=== PATIENT | female | born 1970 | race Caucasian/White ===

== ENCOUNTER 2022-11-12 08:12 | Outpatient (CLI) | payer OTHER, SELFPAY ==
--- NOTE | 2022-11-12 08:22 | ECG_ITS ---
Measurements Intervals [employer] Rate: 74 P: 40 GA: 171 QRS: 32 QRSD: 84 T: 37 QT: 392 QTc: 435 Interpretive Statements SINUS RHYTHM SEPTAL MYOCARDIAL INFARCTION , PROBABLY OLD [40+ ms Q WAVE IN V1/V2] NONSPECIFIC ST ABNORMALITY ABNORMAL ECG NO PREVIOUS ECG AVAILABLE FOR COMPARISON Electronically Signed On 11-12-2022 9:18:05 CDT by Meir Sutton M.D.
[2022-11-12 14:00] LABS: Anion Gap 7 mmol/L (8-16); Blood Urea Nitrogen 16 mg/dL (7-17); Carbon Dioxide 29 mmol/L (22-30); Chloride 104 mmol/L (98-107); Estimated Glomerular Filt Rate > 60; Glucose 97 mg/dL (65-110); Potassium 4.2 mmol/L (3.4-5.0); Sodium 140 mmol/L (137-145)
== END 2022-11-12 08:13 | disposition home or self-care (01) ==
LOC: ANHLAB 08:15
PROVIDERS: Visit Provider Anesthesiology
DX: I10 Essential (primary) hypertension (principal); E78.00 Pure hypercholesterolemia, unspecified; Z01.818 Encounter for other preprocedural examination; R94.31 Abnormal electrocardiogram [ECG] [EKG]
CPT/HCPCS: 36415; 80048; 93005

== ENCOUNTER 2022-11-15 00:49 | Day surgery (SDC) | payer OTHER, SELFPAY ==
[2022-11-10 11:56] VITALS: BMI 31.1
--- NOTE | 2022-11-10 12:03 | PC.NURSE ---
Report to the Outpatient Waiting Room, entrance under the green pavilion located off [facility], at time _0600_ on date _11/15/22_. Planned Procedure Time: _0730. Time changes happen often and if your time is changed the preop area will call you the afternoon before. - You and your visitor will be asked to self-screen and do not enter if you have any COVID symptoms. - A mask is optional within the hospital at this time. Patients may have clear liquids (water, carbonated beverages, clear teas, apple juice) until 3 hours prior to surgery with a maximum of 20 ounces. - No food from midnight until time of surgery - Infants may have breast milk until 4 hours before surgery, formula 6 hours prior to surgery. - Children will be allowed to drink immediately following surgery. If applicable, please bring a bottle or sippy cup to assist with drinking. Juice, water, soda, and popsicles are readily available. For infants on formula, please bring formula the day of surgery. Pacifiers are allowed. Take the following medications with a SIP of water the morning of surgery: NONE__ DO NOT STOP ANY OF YOUR OTHER PRESCRIPTION MEDICATIONS PRIOR TO SURGERY ?EXCEPT THE FOLLOWING Medications to discontinue per physician NONE Date to take last dose Please no make-up, nail lithuanian, hairspray, perfume, deodorant, or body powder the day of surgery. No jewelry (including any body piercings) or valuables the day of surgery, leave them at home. Please take a shower or bath the night before, or the morning of, surgery with an antibacterial soap. Wear comfortable, loose fitting clothing. Children are encouraged to wear pajamas. - Jewelry must be removed prior to entering the operating room. Rings and piercings that are not removed may be cut off. - The hospital will not accept responsibility for valuables. - Please leave all valuables, including medications, at home the day of surgery. If you are going home after surgery, a licensed tram driver must drive you home. - NO public transportation without another adult if you receive anesthesia. - We recommend that an adult stay with you for 24 hours following discharge. - We also recommend that you do not drive, make important decision, drink alcoholic beverages, or take any drugs that were not prescribed by your health care provider for at least 24 hours after your discharge time. For Pediatric surgeries, we recommend two adults accompany the child home. Follow any additional instructions given to you from your surgeon. If you or anyone in your household have experienced Covid symptoms in the past week, please notify your surgeon or the nurse liaison at the phone number below for possible testing. Telephone instructions given to __PATIENT_and asked if any additional questions and then verbalized understanding. Patient advised to call surgeon office or pre surgery nurse liaison [phone] if any additional questions.
[2022-11-15] VITALS (13 sets, daily range): BP systolic 102–155; BP diastolic 58–98; PULSE 69–101; RESP 14–20; TEMP 35.9–37.1; O2SAT 92–100
[2022-11-15 06:50] LABS: Urine Cotinine NEGATIVE
--- NOTE | 2022-11-15 07:07 | WPDHPUPDATE1 ---
History and Physical Update Update Date/Time: 11/15/22 07:07 History and Physical has been reviewed, including an updated exam of the patient. There are NO changes in the patient's condition. Risks, benefits, and alternatives have been discussed and questions answered. Patient agrees to proceed with procedure.
--- NOTE | 2022-11-15 07:07 | W.PM.PROC2 ---
Procedure Note - Detailed Date of Procedure 11/15/22 Pre-op Diagnosis skin laxity Post-op Diagnosis Same Procedure Performed Progressive tension abdominoplasty with suction lipectomy Surgeon Govind Barnes MD Anesthesia General Findings Tissue removed: 2,909 grams Lipoaspirate: 3,100 cc Description of Procedure They are here today for abdominoplasty. Previously and again today the risks, benefits, alternatives were discussed in extensive detail. I wanted them to be very realistic about the risks involved as well as expectations. We discussed aftercare and what to monitor for. I was very upfront about the risks of wound breakdown leading to loss of skin, open wounds, and need for additional procedures with permanent abdominal deformity. We discussed DVT/PE risks and management. Made sure answered all of their questions to their satisfaction today and consent was obtained. They were marked in the preoperative holding area with their verification. The patient was taken to the operating room placed supine on the operating table. Anesthesia was provided by anesthesiology. A Quintana catheter was started. They were prepped and draped in a standard sterile fashion. A surgical time-out was taken. I placed the patient in a flexed position to verify the upper and lower markings would reach. I then placed supine. A thorough abdominal examination was completed. Stab incisions were made and tumescent solution infiltrated. Once adequate time was allowed for hemostasis a 5mm basket cannula and 3mm cannula were utilized to complete suction lipectomy based on S.A.F.E. technique in multiple planes and passes. There were turned to bilateral lateral decubitus position with care taken to protect them for injury during this process. Suction lipectomy continued to result based on pre-operative planning, intra-operative observation, and rolling pinch test which were in full agreement. A 10 blade was used to make the upper incision. I continued dissection down to the level of fascia. Elevated just what was necessary for repair of the diastasis. I then again flexed the bed to verify the upper skin flap would reach the lower markings without tension. Once verified I placed her supine once again and a 10 blade used to make the lower incision. I elevated up to level the umbilicus and left the umbilicus intact on a well-vascularized stalk. The intervening tissue was removed. A 2 mm blunt cannula with 0.5% bupivicaine was injected deep to the fascia bilaterally. I plicated the diastasis recti using 0 PDO stratafix barbed suture. This was in 2 separate layers using 2 separate sutures as well. I repaired around the umbilicus leaving plenty of room for well-vascularized stalk of the umbilicus with 2-0 PDS. I also repaired lateral to the rectus using two layers of 0 PDO stratafix. The patient was flexed and starting from superior to inferior began plication using 2-0 Vicryl to obliterate all space in a standard progressive tension fashion. At the umbilicus I marked out the location of the skin and inset this with 3-0 Monocryl and 4-0 Vicryl. I continued the remainder of the plication using 2-0 Vicryl until I reached my lower planned scar line. I trimmed any excess skin of the upper flap making sure this was a tension-free closure. Single 15 joan drain was placed. I then approximated using a 3 point suture with 2-0 Vicryl followed by 3-0 stratafix ,running subcuticular 4-0 Monocryl, and tissue glue. Fluffs and an abdominal binder were placed. The patient was transferred to the bed in a flexed position. Awoken and taken to the PACU without difficulty. All instrument and sponge counts were correct at the end of the case. Estimated Blood Loss 75 Drains No Packing No Pathology None sent Complications No immediate complications Condition Stable Disposition PACU
--- NOTE | 2022-11-15 07:08 | P.PNAN_ITS ---
Anes - Initial Pre Proc Eval Procedure: Operation Date: 11/15/22 07:30 Proposed Procedures p Abdominoplasty with Liposuction - Govind Barnes MD Date/Time: 11/15/22 07:08 Surgeon: Govind Barnes MD Pre Op Diagnosis: skin laxity Patient Data Age: 51 Gender: F Height: 1.73 m Weight: 89.5 kg Last Vital Signs Temp 35.9 C L 11/15/22 06:45 Pulse 69 11/15/22 06:45 Resp 18 11/15/22 06:45 BP 141/66 H 11/15/22 06:45 Pulse Ox 98 11/15/22 06:45 O2 Del Method Room Air 11/15/22 06:45 Allergies Allergy/AdvReac Type Severity Reaction Status Date / Time Sulfa (Sulfonamide AdvReac Unknown N/V Verified 11/15/22 06:40 Antibiotics) Home Medications Medication Instructions Recorded Confirmed Type hydrochlorothiazide 25 mg PO DAILY 12/16/21 11/15/22 History rosuvastatin 10 mg tablet (Crestor) 10 mg PO DAILY 11/10/22 11/15/22 History Laboratory Tests 11/15/22 06:31 Cotinine Negative Patient hx anesthesia problems: none Family hx anesthesia problems: none Results Review: All pre-operative results and documents have been reviewed as part of the pre- operative evaluation. [facility] Surgical History Surgical History History of appendectomy History of History of hysterectomy Family History Family History Mother Ovarian cancer Social History Social History Smoking status: Never smoker Alcohol intake: former Alcohol use details: ONE DRINK PER YEAR Living arrangements: alone Anes - Eval Final PreProcedure Day of Procedure 11/15/22 07:08 Patient weight: obese Heart: regular rate and rhythm Lungs: clear to auscultation Airway: Mallampati scale class II Neurological: alert and oriented Last oral intake: >/= 8 hours ASA classification: II Emergent: no Anesthetic plan: proceed Anesthesia type and monitoring: general ETT and standard monitoring Results Review: All pre-operative results and documents have been reviewed as part of the pre- operative evaluation. Informed Consent: The patient's anesthetic plan and its attendant risks and benefits were discussed with the patient/family/POA. Questions were solicited and answers provided to the satisfaction of the patient/family/POA.
[2022-11-15] MEDS: LACTATED RINGERS 1,000 ML 30 ML IV CONT ×3 (07:11→12:32)
[2022-11-15] MEDS: SCOPOLAMINE 1.5 MG PATCH TRANSDERM (07:19)
[2022-11-15] MEDS: LACTATED RINGERS IRRIG 1,000 ML, LIDOCAINE HCL 1% LOCAL INJ 50 ML, EPINEPHrine HCL INJ ... INFILTRATE (07:27)
[2022-11-15] MEDS: BUPIVACAINE/EPINEPHRINE 0.5% 10 ML VIAL 60 ML INFILTRATE (07:27)
[2022-11-15] MEDS: ceFAZolin 2 GM/D5W 50 ML 2 GM/50 ML BAG IVPB (07:27)
[2022-11-15] MEDS: TRANEXAMIC ACID 1,000MG/ISO100 1,000 MG/100 ML BAG 200 MG IVPB (07:37)
[2022-11-15] MEDS: fentaNYL CITRATE INJ (*CRX) 100 MCG/2 ML VIAL 25 MCG IV PUSH ×7 (12:39→14:30)
[2022-11-15] MEDS: ONDANSETRON INJ 4 MG/2 ML VIAL IV PUSH (12:57)
[2022-11-15] MEDS: diphenhydrAMINE HCl INJ 50 MG/ML VIAL 25 MG IV PUSH (13:02)
--- NOTE | 2022-11-15 14:38 | ADMGEN ---
This patient, Latasha Reynolds, was admitted to OB 2nd Floor Room 289-00. Patient/family oriented to hospital policies and general routines including ID bracelet, bed and alarms, visiting hours, pain management, procedures, bathroom and other care routines, personal items, smoking policy, room service/diet, and visiting hours. Information on how to activate the Rapid Response Team has been discussed. Patient/Family are encouraged to report perceived risks to care and to ask questions if they do not understand what they are told or what they should do.
[2022-11-15] MEDS: LACTATED RINGERS 1,000 ML 125 ML IV CONT (15:04)
[2022-11-15] MEDS: MORPHINE SULFATE (*CRX) 2 MG/ML INJ IV PUSH (15:09)
[2022-11-15] MEDS: oxyCODONE/ACETAMINOPHEN (*CRX) 5-325 MG TABLET PO (16:52)
[2022-11-15] MEDS: carisoprodoL (*CRX) 350 MG TABLET PO (17:53)
[2022-11-15] MEDS: ENOXAPARIN 40 MG/0.4 ML SYRINGE SUB-Q (17:53)
[2022-11-15] MEDS: KETOROLAC 10 MG TABLET PO (17:53)
[2022-11-16] MEDS: KETOROLAC 10 MG TABLET PO ×3 (00:23→12:26)
[2022-11-16] MEDS: DOCUSATE SODIUM 100 MG CAPSULE PO ×2 (00:23→11:19)
[2022-11-16] MEDS: carisoprodoL (*CRX) 350 MG TABLET PO ×3 (00:23→12:28)
[2022-11-16] MEDS: LACTATED RINGERS 1,000 ML 125 ML IV CONT ×2 (00:23→09:18)
[2022-11-16 00:25] VITALS: BP 95/58; PULSE 88; RESP 18; TEMP 37.1; O2SAT 96
[2022-11-16 05:20] VITALS: BP 103/53; PULSE 92; RESP 18; TEMP 37.3; O2SAT 95
[2022-11-16] MEDS: oxyCODONE/ACETAMINOPHEN (*CRX) 5-325 MG TABLET PO ×2 (05:33→12:27)
--- NOTE | 2022-11-16 07:00 | PC.NURSE ---
PT introductions made and plan of care discussed per post op sandstone inspector repairer surgery, pain management, daily care activities and pending discharge to home. PT sole recipient of such instructions and no barriers to learning identified at this time. PT received such instructions per one to one discussion and demonstrations. PT verbalized understanding of such care.
[2022-11-16 08:00] VITALS: PULSE 102; RESP 18; O2SAT 97
[2022-11-16 08:30] VITALS: BP 88/57; PULSE 102; RESP 18; TEMP 36.8; O2SAT 97
--- NOTE | 2022-11-16 08:56 | WPDPN ---
Progress Note: A&P Assessment and Plan (1) Skin laxity: Code(s): L57.4 - Cutis laxa senilis Status: Acute Assessment and Plan: Doing well after progressive tension abdominoplasty with suction lipectomy. Will plan for discharge home. Today we had a lengthy discussion about the care. What to monitor for. Activity limitations. What is an emergency and when to proceed to ER / dial 911. Call with all other questions or concerns. Subjective Date/time seen: 11/16/22 06:35 am Interval history: Doing well after progressive tension abdominoplasty with suction lipectomy. Ambulating. Tolerating PO. Pain controlled. No N/V. No F/C. No SOB. No CP. No calf tenderness. Review of Systems Review of Systems: All systems reviewed & are unremarkable except as noted in HPI and below Exam Narrative: Alert & Oriented NOD Respiratory unlabored Abdomen is healing well. No signs of infection. No hematoma. No seroma. Good color and capillary refill. No calf tenderness. Negative Rebecca's Objective Data Vital Signs Vital Signs: Vital Signs - 24 hr 11/15/22 12:21 11/15/22 12:35 11/15/22 12:45 Temperature 36.5 C Pulse Rate 101 H 83 86 Respiratory Rate 20 14 17 Blood Pressure 152/98 H 143/65 H 135/71 Pulse Oximetry 100 100 95 Oxygen Delivery Simple Face Mask Simple Face Mask Room Air Oxygen Flow Rate 10 6 11/15/22 13:00 11/15/22 13:15 11/15/22 13:30 Temperature Pulse Rate 89 81 84 Respiratory Rate 17 17 14 Blood Pressure 131/78 155/85 H 150/76 H Pulse Oximetry 98 97 97 Oxygen Delivery Nasal Cannula Nasal Cannula Nasal Cannula Oxygen Flow Rate 3 2 2 11/15/22 13:44 11/15/22 13:50 11/15/22 14:00 Temperature Pulse Rate 79 80 78 Respiratory Rate 15 16 19 Blood Pressure 149/76 H 150/79 H 141/78 H Pulse Oximetry 94 100 92 Oxygen Delivery Room Air Nasal Cannula Room Air Oxygen Flow Rate 2 11/15/22 14:32 11/15/22 14:50 11/15/22 14:50 Temperature 37.0 C Pulse Rate 82 74 Respiratory Rate 19 16 Blood Pressure 129/71 129/72 Pulse Oximetry 97 97 97 Oxygen Delivery Nasal Cannula Nasal Cannula Oxygen Flow Rate 2 2 06/20/23 21:30 11/15/22 21:30 11/16/22 00:25 Temperature 37.1 C Pulse Rate 76 Respiratory Rate 18 Blood Pressure 102/58 L Pulse Oximetry 97 97 96 Oxygen Delivery Nasal Cannula Nasal Cannula Oxygen Flow Rate 2 1 11/16/22 00:25 11/16/22 05:20 11/16/22 05:20 Temperature 37.1 C 37.3 C Pulse Rate 88 92 Respiratory Rate 18 18 Blood Pressure 95/58 L 103/53 L Pulse Oximetry 96 95 Oxygen Delivery Room Air Oxygen Flow Rate Intake/Output Intake/Output: Intake & Output 11/13/22 11/14/22 11/15/22 11/16/22 23:59 23:59 23:59 23:59 Intake Total 2340 800 Output Total 365 292 Balance 1975 508 Meds/Results Medications: Active Medications Generic Name Dose Route Start Last Admin Trade Name Freq PRN Reason Stop Dose Admin Carisoprodol 350 mg 11/15/22 18:00 11/16/22 05:33 Carisoprodol (*Crx) 350 Mg Tablet PO 350 mg Q6HR ANIRUDH Administration Diazepam 5 mg 11/15/22 12:14 Diazepam (*Crx) 5 Mg Tablet PO TID PRN Anxiety Docusate Sodium 100 mg 11/15/22 21:00 11/16/22 00:23 Docusate Sodium 100 Mg Capsule PO 100 mg Q12HR ANIRUDH Administration Enoxaparin Sodium 40 mg 11/15/22 18:00 11/15/22 17:53 Enoxaparin 40 Mg/0.4 Ml Syringe SUB-Q 40 mg DAILY@1800 [facility] Administration Hydrochlorothiazide 25 mg 11/16/22 09:00 Hydrochlorothiazide 25 Mg Tablet PO DAILY ANIRUDH Lactated Ringer's 1,000 mls @ 125 mls/hr 11/15/22 12:15 11/16/22 05:40 Lr - Lactated Ringers Iv IV CONT Not Given .Q8H ANIRUDH Ketorolac Tromethamine 10 mg 11/15/22 18:00 11/16/22 05:33 Ketorolac 10 Mg Tablet PO 11/17/22 12:01 10 mg Q6HR ANIRUDH Administration Morphine Sulfate 2 mg 11/15/22 12:14 11/15/22 15:09 Morphine Sulfate (*Crx) 2 Mg/Ml Inj IV PUSH 2 mg Q2H PRN Administration Pain
--- NOTE | 2022-11-16 09:17 | P.DS_ITS ---
DS: Admitting Diagnosis Discharge Date 11/16/2022 Admitting Diagnosis Skin Laxity Localized adiposity DS: Discharge Diagnosis Discharge Diagnosis (1) Skin laxity: Code(s): L57.4 - Cutis laxa senilis Status: Acute (2) Localized adiposity: Code(s): E65 - Localized adiposity Status: Acute DS: Summary Hospital Course Hospital Course: She underwent progressive tension abdominoplasty with suction lipectomy. Post-op has done well. Will plan for discharge home. Time Spent with Patient Time attestation: Total time spent providing and/or coordinating discharge services: Exam Narrative: Alert & Oriented NOD Respiratory unlabored Abdomen is healing well. No signs of infection. No hematoma. No seroma. Good color and capillary refill. No calf tenderness. Negative Rebecca's Discharge Plan Discharge Patient Disposition: Home, Self-Care Discharge Instructions: POST OPERATIVE DISCHARGE INSTRUCTIONS GOVIND BARNES M.D. [facility] [address] [place] [address] * No driving for 24 hours after anesthesia and while you are taking pain medication. * Take all prescribed medication as directed * Diet as tolerated. * No lifting or activity that raises blood pressure for 48 hours. * Regular walking / ambulation. * May shower 24 hours after surgery. Once you shower do not take pain medication before showering as the combination of medication and heat may cause you to feel dizzy or pass out. * No pools or tubs for 2 weeks. * Slowly stand up straight as tolerated. * No straining or lifting more than 20 pounds. * If no bowel movement within 24 hours may use laxative. * Call with any questions or concerns. * Dressing Care: Continue abdominal binder / foam 23 hours per day. If you have any questions or concerns, please call the office . If it is after hours you will be directed to the implementation specialist payroll exchange. Shortness of breath, chest pain, or other medical emergency dial 911 / proceed to the Emergency Room. Stand Alone Forms: General Discharge Instructions Follow-up/Referrals: Govind Barnes MD [Physician] - 1 Week Discharge Medications: Continued hydrochlorothiazide 25 mg PO DAILY rosuvastatin [Crestor] 10 mg Tablet 10 mg PO DAILY
--- NOTE | 2022-11-16 09:17 | PM.DS ---
DS: Admitting Diagnosis Discharge Date 11/16/2022 Admitting Diagnosis Skin Laxity Localized adiposity DS: Discharge Diagnosis Discharge Diagnosis (1) Skin laxity: Code(s): L57.4 - Cutis laxa senilis Status: Acute (2) Localized adiposity: Code(s): E65 - Localized adiposity Status: Acute DS: Summary Hospital Course Hospital Course: She underwent progressive tension abdominoplasty with suction lipectomy. Post-op has done well. Will plan for discharge home. Time Spent with Patient Time attestation: Total time spent providing and/or coordinating discharge services: Exam Narrative: Alert & Oriented NOD Respiratory unlabored Abdomen is healing well. No signs of infection. No hematoma. No seroma. Good color and capillary refill. No calf tenderness. Negative Rebecca's Discharge Plan Discharge Patient Disposition: Home, Self-Care Discharge Instructions: POST OPERATIVE DISCHARGE INSTRUCTIONS GOVIND BARNES M.D. [facility] [address] [place] [address] No driving for 24 hours after anesthesia and while you are taking pain medication. Take all prescribed medication as directed Diet as tolerated. No lifting or activity that raises blood pressure for 48 hours. Regular walking / ambulation. May shower 24 hours after surgery. Once you shower do not take pain medication before showering as the combination of medication and heat may cause you to feel dizzy or pass out. No pools or tubs for 2 weeks. Slowly stand up straight as tolerated. No straining or lifting more than 20 pounds. If no bowel movement within 24 hours may use laxative. Call with any questions or concerns. Dressing Care: Continue abdominal binder / foam 23 hours per day. If you have any questions or concerns, please call the office . If it is after hours you will be directed to the process control board operator exchange. Shortness of breath, chest pain, or other medical emergency dial 911 / proceed to the Emergency Room. Stand Alone Forms: General Discharge Instructions Follow-up/Referrals: Govind Barnes MD [Physician] - 1 Week Discharge Medications: Continued hydrochlorothiazide 25 mg PO DAILY rosuvastatin [Crestor] 10 mg Tablet 10 mg PO DAILY
[2022-11-16] MEDS: ONDANSETRON INJ 4 MG/2 ML VIAL IV PUSH (09:18)
--- NOTE | 2022-11-16 10:48 | WPDANESPN ---
Anes - Prog Note Post-Op Date/Time: 11/16/22 10:48 Cardiovascular status: normal Respiratory status: normal Airway patency: baseline Mental status: baseline Post-Op hydration status: normal Vital Signs: Last Vital Signs Temp 36.8 C 11/16/22 08:30 Pulse 102 H 11/16/22 08:30 Resp 18 11/16/22 08:30 BP 88/57 L 11/16/22 08:30 Pulse Ox 97 11/16/22 08:30 O2 Del Method Room Air 11/16/22 05:20 O2 Flow Rate 1 11/16/22 00:25 Pain Score (VAS): 2/10 I/O: Intake & Output 11/15/22 11/16/22 11/16/22 23:59 07:59 15:59 Intake Total 9337 854 7972 Output Total 115 292 Balance 8715 362 5031 Post-procedural complaints: none Patient Feedback: Patient satisfied with anesthetic care.
[2022-11-16] MEDS: hydroCHLOROthiazide 25 MG TABLET PO (11:17)
[2022-11-16] MEDS: ROSUVASTATIN 10 MG TABLET PO (11:19)
--- NOTE | 2022-11-16 13:00 | PC.NURSE ---
PT received discharge instructions per Dr Barnes protocol and PT verbalized understanding of such instructions.
--- NOTE | 2022-11-16 13:20 | PC.NURSE ---
PT discharged to home via wheelchair accompanied by daughter and taken to waiting vehicle. PT Follow up appts confirmed
== END 2022-11-16 13:20 | disposition home or self-care (01) ==
LOC: ANHSURGERY 07:09 → ANHOB2 14:36
PROVIDERS: Visit Provider Surgery Plastic and Reconstructive Surgery
PROC: (CPT 15877; principal; 2022-11-15 07:30)
DX: Z41.1 Encounter for cosmetic surgery (principal); L57.4 Cutis laxa senilis; E65 Localized adiposity; E66.9 Obesity, unspecified; Z68.30 Body mass index [BMI] 30.0-30.9, adult; Z79.899 Other long term (current) drug therapy
CPT/HCPCS: 15877; 15830; 15847; 80307; 99199; A9270; J0171; J0690; J1100; J1200; J1650; J2250; J2270; J2405; J2704; J3010; J7120